=== PATIENT | male | born 1980 | race Two or more races ===

== ENCOUNTER 2018-07-03 22:46 | Emergency (ER) | payer SELFPAY ==
[2018-07-03 23:03] VITALS: BMI 21.5
--- NOTE | 2018-07-04 00:31 | ED PDOC ---
Arrival/HPI - General Chief Complaint: Alcohol Ingestion Time Seen by Provider: 07/04/18 00:15 Historian: EMS - History of Present Illness Narrative History of Present Illness (Text): 07/04/18 00:28 A 38 year old male, with no significant past medical history, is brought in by EMS into the emergency department for public intoxication. Patient was found sleeping on park bench intoxicated and brought here for evaluation. He is asleep and unarousable at this time. Limited HPI and ROS due to AMS s/p intoxication. Patient was found sleeping on park bench intoxicated and brought here for evaluation. No signs of trauma. No PMD Past Medical History - Provider Review Nursing Documentation Reviewed: Yes - Psychiatric Hx Substance Use: No Family/Social History - Physician Review Nursing Documentation Reviewed: Yes Family/Social History: Unknown Family HX Smoking Status: Heavy Smoker > 10 Cigarettes Daily Hx Alcohol Use: Yes Frequency of alcohol use: Daily Hx Substance Use: No Allergies/Home Meds Allergies/Adverse Reactions: Allergies No Known Allergies Allergy (Verified 07/03/18 23:02) Home Medications: Home Meds Medication Instructions Recorded Confirmed Unobtainable 07/03/18 07/03/18 Review of Systems - Review of Systems Systems not reviewed;Unavailable: Altered Mental Status (s/p intoxication) Physical Exam - Physical Exam Physical Exam Limitations: Intoxication Vital Signs Temp Pulse Resp BP Pulse Ox 07/04/18 04:55 80 18 128/76 100 07/04/18 02:47 70 16 127/68 99 07/04/18 00:30 78 18 128/72 97 07/03/18 23:05 97.8 F 99 H 18 142/78 98 - Systems Exam Head: Present: Atraumatic, Normocephalic Pupils: Present: PERRL Extroacular Muscles: Present: EOMI Conjunctiva: Present: Normal Ears: Present: Normal Mouth: Present: Moist Mucous Membranes Pharnyx: Present: Normal Nose (External): Present: Atraumatic Nose (Internal): Present: Normal Inspection Neck: Present: Normal Range of Motion Respiratory/Chest: Present: Clear to Auscultation, Good Air Exchange Cardiovascular: Present: Regular Rate and Rhythm Abdomen: Present: Normal Bowel Sounds. No: Tenderness, Distention, Peritoneal Signs Back: Present: Normal Inspection Upper Extremity: Present: Normal Inspection Lower Extremity: Present: Normal Inspection Neurological: Present: Speech Normal (awakens to sternal rub), Other Skin: Present: Warm, Dry. No: Rashes Medical Decision Making ED Course and Treatment: 07/04/18 00:30 Impression: 38 year old male brought in for intoxication. Limited PE due to patient AMS s/p intoxication. Plan: -- Head CT -- Cervical Spinal CT -- Labs -- Reassess and disposition Progress Notes: 07/04/2018 04:[address] IMPRESSION: 1. No acute findings. 2. There are scattered nonaggressive lytic foci in cervical vertebra which are of uncertain etiology. The largest of these is in the right aspect of C4. MRI evaluation could be performed if indicated. Dictator: Mauricio Herbert MD 07/04/2018 04:[address] IMPRESSION: No acute findings. Dictator: Mauricio Herbert MD 07/04/18 04:38 Upon re-examination, patient states he did not fall and that he admits to drinking 10 beers earlier in the evening. Patient last remembers passing out in the park due to the amount of beer he drank. Neurological examination is normal. Pt is clinically sober for d/c home, and is not exhibiting signs of withdrawal. Also, patient has been informed he has a lytic foci, has been instructed to follow-up for evaluation. - Lab Interpretations Lab Results: 07/04/18 00:30 07/04/18 00:30 Lab Results 07/04/18 00:30: Salicylates < 1 L, Acetaminophen < 10.0 L 07/04/18 00:30: Sodium 146, Potassium 4.3, Chloride 104, Carbon Dioxide 25, Anion Gap 21 H, BUN 14, Creatinine 0.6 L, Est GFR ( Amer) > 60, Est GFR ( Non-Af Amer) > 60, Random Glucose 124 H, Calcium 9.3, Total Bilirubin 0.4, AST 36, ALT 29, Alkaline Phosphatase 83, Total Protein 8.2, Albumin 4.8, Globulin 3.4, Albumin/Globulin Ratio 1.4 07/04/18 00:30: WBC 9.1, RBC 5.22, Hgb 15.6, Hct 44.3, MCV 84.9, MCH 29.9, MCHC 35.2, RDW 13.0, Plt Count 239, MPV 8.3, Gran % 58.0, Lymph % (Auto) 31.8, [place] % (Auto) 4.0, Eos % (Auto) 6.0 H, Baso % (Auto) 0.2, Gran # 5.25, Lymph # (Auto ) 2.9, [place] # (Auto) 0.4, Eos # (Auto) 0.5, Baso # (Auto) 0.02 07/04/18 00:29: POC Glucose (mg/dL) 119 H I have reviewed the lab results: Yes - RAD Interpretation Radiology Orders: 07/04/18 00:28 CERVICAL SPINE W/O CONTRAST [CT] Stat HEAD W/O CONTRAST [CT] Stat - Scribe Statement The provider has reviewed the documentation as recorded by the Bautista Motta Provider Scribe Attestation: All medical record entries made by the Scribe were at my direction and personally dictated by me. I have reviewed the chart and agree that the record accurately reflects my personal performance of the history, physical exam, medical decision making, and the department course for this patient. I have also personally directed, reviewed, and agree with the discharge instructions and disposition. Disposition/Present on Arrival - Present on Arrival Any Indicators Present on Arrival: No History of DVT/PE: No History of Uncontrolled Diabetes: No Urinary Catheter: No History of Decub. Ulcer: No History Surgical Site Infection Following: None - Disposition Have Diagnosis and Disposition been Completed?: Yes Diagnosis: Alcohol intoxication Disposition: HOME/ ROUTINE Disposition Time: 04:32 Condition: GOOD Discharge Instructions (ExitCare): Alcohol Abuse and Alcoholism (DC) Additional Instructions: BLESSING DEVRIES, thank you for letting us take care of you today. Your provider was Alirio Trinidad and you were treated for ETOH. The emergency medical care you received today was directed at your acute symptoms. If you were prescribed any medication, please fill it and take as directed. It may take several days for your symptoms to resolve. Return to the Emergency Department if your symptoms worsen, do not improve, or if you have any other problems. Please contact your doctor or call one of the physicians/clinics you have been referred to that are listed on the Patient Visit Information form that is included in your discharge packet. Bring any paperwork you were given at discharge with you along with any medications you are taking to your follow up visit. Our treatment cannot replace ongoing medical care by a primary care provider outside of the emergency department. Thank you for allowing the [facility] team to be part of your care today. If you had an X-Ray or CT scan: A Radiologist will review the ED reading if any change in treatment is needed we will contact you. If you had a blood, urine, or wound culture: It will take several days for the results, if any change in treatment is needed we will contact you. If you had an STI test: It will take 48 hours for the results. Please call after 1 week if you have not heard back. Referrals: Isi Olmedo MD [Medical Doctor] - Follow up with primary Forms: [employer] (Telugu)
[2018-07-04 00:43] LABS: BASO # 0.02 K/mm3 (0.0-2.0); BASO % 0.2 % (0.0-3.0); EOS # 0.5 (0.0-0.7); GRAN # 5.25 (1.4-6.5); HEMOGLOBIN 15.6 g/dL (14.0-18.0); LYMPH # 2.9 (1.2-3.4); LYMPH % 31.8 % (22.0-35.0); MEAN CELL VOLUME 84.9 fl (80.0-105.0); MEAN CORPUSCULAR HEMOGLOBIN 29.9 pg (25.0-35.0); MEAN CORPUSCULAR HGB CONC 35.2 g/dl (31.0-37.0); MEAN PLATELET VOLUME 8.3 fl (7.0-11.0); MONO # 0.4 (0.1-0.6); RBC 5.22 10^6/uL (3.5-6.1); WHITE BLOOD COUNT 9.1 10^3/ul (4.5-11.0)
[2018-07-04 00:59] LABS: ALB/GLOB RATIO 1.4 (1.1-1.8)
[2018-07-04 01:12] LABS: ALBUMIN 4.8 g/dL (3.0-4.8); ALT/SGPT 29 U/L (7-56); AST/SGOT 36 U/L (17-59); BLOOD UREA NITROGEN 14 mg/dL (7-21); CALCIUM 9.3 mg/dL (8.4-10.5); GFR NON-AFRICAN AMERICAN > 60
[2018-07-04 01:23] LABS: ACETAMINOPHEN < 10.0 ug/ml (10.0-20.0); SALICYLATE < 1 mg/dL (2.0-20.0)
[2018-07-04 05:02] VITALS: BP 128/76; PULSE 80; RESP 18; TEMP 97.8; O2SAT 100
--- NOTE | 2018-07-04 08:20 | CT ---
Date of service: 07/04/2018 PROCEDURE: CT HEAD WITHOUT CONTRAST. HISTORY: intox COMPARISON: None available. TECHNIQUE: Axial computed tomography images were obtained through the head/brain without intravenous contrast. Radiation dose: Total exam DLP = 926.78 mGy-cm. This CT exam was performed using one or more of the following dose reduction techniques: Automated exposure control, adjustment of the mA and/or kV according to patient size, and/or use of iterative reconstruction technique. FINDINGS: HEMORRHAGE: No intracranial hemorrhage. BRAIN: Guidry-white matter differentiation is preserved. There is no mass, mass effect or abnormal extra-axial fluid collection. There is no territorial infarction. The midline sagittal structures are normal. VENTRICLES: The ventricles are normal in size, shape and configuration. CALVARIUM: There is no calvarial fracture or extracranial soft tissue swelling. PARANASAL SINUSES: Moderate mucosal thickening in the ethmoid air cells, the remaining included paranasal sinuses are clear. . MASTOID AIR CELLS: Predominantly clear. OTHER FINDINGS: None. IMPRESSION: No acute intracranial abnormality.
--- NOTE | 2018-07-04 09:19 | CT ---
Date of service: 07/04/2018 PROCEDURE: CT Cervical Spine without contrast HISTORY: Intoxication COMPARISON: None available. TECHNIQUE: Axial computed tomography images were obtained of the cervical spine without the use of intravenous contrast. Coronal and sagittal reformatted images were created and reviewed. Radiation dose: Total exam DLP = 658.39 mGy-cm. This CT exam was performed using one or more of the following dose reduction techniques: Automated exposure control, adjustment of the mA and/or kV according to patient size, and/or use of iterative reconstruction technique. FINDINGS: VERTEBRAE: There is normal alignment of the cervical vertebral bodies. There is straightening of the cervical spine with loss of normal cervical lordosis. Vertebral height is normal. There are scattered lucent areas in the cervical vertebral bodies, the largest in C4 on the right. . There is no acute fracture or traumatic anterior listhesis. The craniocervical junction is normal. The atlantoaxial joint normal. DISCS/SPINAL CANAL/NEURAL FORAMINA: No significant central canal or neural foraminal stenosis. Discs heights are grossly preserved. PARASPINAL SOFT TISSUES: The paraspinous soft tissues are normal. OTHER FINDINGS: No prevertebral soft tissue thickening. There is mild paraseptal emphysema in the right upper lobe. No apical pneumothorax. IMPRESSION: No acute fracture or traumatic anterior listhesis. Scattered lucent areas in the cervical vertebral bodies, nonspecific and not completely characterized on this examination. Correlation with MRI of the cervical spine is indicated. A preliminary report was provided by [facility] services.
== END 2018-07-04 04:39 | disposition home or self-care (01) ==
LOC: ED 22:46
DX: F10.129 Alcohol abuse with intoxication, unspecified (principal)
CPT/HCPCS: 70450; 72125; 80053; 82948; 85025; 99285; G0480